=== PATIENT | female | born 1930 | race Caucasian/White ===

== ENCOUNTER 2017-06-25 21:57 | Inpatient (IN) | payer MEDICAID, MEDICARE ==
--- NOTE | 2017-06-25 22:44 | C.PDOC ---
History Of Present Illness 87 year old female who presents to the ER after falling and having a possible injury to the back of the head. As per family, patient missed a step on the staircase and fell. Patient is also complaining of a headache and pain to the right thigh area; uncertain about LOC, denies any weakness, numbness, nausea, or vomiting. - HPI Chief Complaint (Nursing): Trauma History Per: Patient History/Exam Limitations: no limitations Onset/Duration Of Symptoms: Days Location Of Injury: Posterior: Head (Possible) Recent travel outside of the [place]: No - Fall Fall:Prior To Injury: Other (Not known) Past Medical History Reviewed: Historical Data, Nursing Documentation, Vital Signs Vital Signs: Last Vital Signs Temp 98.2 F 06/25/17 22:07 Pulse 86 06/25/17 22:07 Resp 16 06/25/17 22:07 BP 145/61 06/25/17 22:07 Pulse Ox 98 06/26/17 01:46 - Medical History PMH: HTN, Osteoporosis Surgical History: No Surg Hx Family History: States: Unknown Family Hx - Social History Hx Tobacco Use: No Hx Alcohol Use: No Hx Substance Use: No - Immunization History Hx Tetanus Toxoid Vaccination: No Hx Influenza Vaccination: No Hx Pneumococcal Vaccination: No Review Of Systems Gastrointestinal: Negative for: Nausea, Vomiting Musculoskeletal: Positive for: Leg Pain Neurological: Positive for: Headache. Negative for: Weakness, Numbness, Other ( LOC) Physical Exam - Physical Exam Appears: Non-toxic, Other (Awake, alert, and conscious) Skin: Normal Color, Warm, Dry Head: Atraumatic, Normacephalic Eye(s): bilateral: Normal Inspection, PERRL, EOMI Oral Mucosa: Moist Chest: Symmetrical, No Tenderness Cardiovascular: Rhythm Regular, No Murmur Respiratory: Normal Breath Sounds, No Rales, No Rhonchi, No Wheezing Gastrointestinal/Abdominal: Soft, No Tenderness Neurological/Psych: Oriented x3, Normal Speech, Normal Cognition ED Course And Treatment - Laboratory Results Result Diagrams: 06/25/17 23:04 06/26/17 01:05 ECG: Interpreted By Me, Viewed By Me ECG Rhythm: Sinus Rhythm ECG Interpretation: Normal, No Acute Changes Interpretation Of ECG: NSR, normal tracings. Rate From EC O2 Sat by Pulse Oximetry: 98 Pulse Ox Interpretation: Normal - CT Scan/US CT Head Other Rad Studies (CT/US): Read By Radiologist, Radiology Report Reviewed CT/US Interpretation: EXAM: CT Head Without Intravenous Contrast. CLINICAL HISTORY: 87 years old, female; Pain; Headache. TECHNIQUE: Axial computed tomography images of the head/brain without intravenous contrast. This CT exam. was performed using one or more of the following dose reduction techniques: automated exposure. control, adjustment of the mA and/or kV according to patient size, and/or use of iterative. reconstruction technique. COMPARISON: No relevant prior studies available. Examination is limited by a significant amount of motion artifact. FINDINGS: Brain: No acute intracranial hemorrhage. Age-appropriate periventricular white matter disease. No. edema. Significant vascular calcifications are noted. Ventricles: Age-appropriate ventriculomegaly. Bones: No acute displaced fracture. Sinuses: Unremarkable as visualized. No acute sinusitis. Mastoid air cells: Unremarkable as visualized. No mastoid effusion. IMPRESSION:Limited examination secondary to motion artifact is without acute intracranial hemorrhage, or. suspicious mass effect. NIHSS Stroke Scale - Date/Time Evaluation Performed Date Performed: 06/26/17 Time Performed: 21:00 When Was NIHSS Performed: Baseline - How Severe is the [place]oke Level of Consciousness: 0=Alert LOC to Questions: 0=Both comments correct LOC to commands: 0=Obeys both correctly Visual: 0=No visual loss Facial: 0=Normal Motor Arm - Left: 0=No drift Motor Arm - Right: 0=No drift Motor Leg - Left: 0=No drift Motor Leg - Right: 0=No drift Limb Ataxia: 0=Absent Sensory: 0=Normal Best Language: 0=No aphasia Dysarthia: 0=Normal articulation Extinction & Inattention (Neglect): 0=Normal, no object Severity Of Stroke: 0= No Stroke Disposition Discussed With : Wilber Alarcon Doctor Will See Patient In The: Hospital Counseled Patient/Family Regarding: Diagnosis - Disposition Disposition: HOSPITALIZED Disposition Time: 01:45 Condition: STABLE Forms: [facility] ([place]) - POA Present On Arrival: None - Clinical Impression Clinical Impression: Abnormal blood electrolyte level, Hyponatremia, Head injury - Scribe Statement The provider has reviewed the documentation as recorded by the Scribe Emile Johns All medical record entries made by the Scribe were at my direction and personally dictated by me. I have reviewed the chart and agree that the record accurately reflects my personal performance of the history, physical exam, medical decision making, and the department course for this patient. I have also personally directed, reviewed, and agree with the discharge instructions and disposition.
[2017-06-25 23:08] LABS: BASO % 0.6 % (0.0-2.0); EOS % 0.7 % (0.0-4.0); HEMATOCRIT 32.7 % (34.0-47.0); LYMPH % 15.8 % (20.0-40.0); MEAN CELL VOLUME 87.1 fL (81.0-99.0); MEAN CORPUSCULAR HEMOGLOBIN 30.3 pg (27.0-31.0); MEAN CORPUSCULAR HGB CONC 34.8 g/dL (33.0-37.0); MEAN PLATELET VOLUME 6.6 fL (7.2-11.7); MONO # 0.8 K/uL (0.0-0.8); MONO % 12.2 % (0.0-10.0); RED CELL DISTRIBUTION WIDTH 13.9 % (11.5-14.5); WHITE BLOOD COUNT 6.3 K/uL (4.8-10.8)
[2017-06-25 23:15] LABS: CHLORIDE 82 mmol/L (98-107)
[2017-06-25 23:16] LABS: POTASSIUM 4.6 mmol/L (3.6-5.2)
[2017-06-25 23:18] LABS: ALB/GLOB RATIO 1.4 (1.0-2.1); ALKALINE PHOSPHATASE 69 U/L (38-126); ALT/SGPT 32 U/L (9-52); AST/SGOT 28 U/L (14-36); BILIRUBIN,TOTAL 0.7 mg/dL (0.2-1.3); BLOOD UREA NITROGEN 17 mg/dL (7-17); CARBON DIOXIDE 23 mmol/L (22-30); GFR AFRICAN-AMERICAN > 60; GLUCOSE,RANDOM 106 mg/dL (65-105); TOTAL PROTEIN 6.6 g/dL (6.3-8.3)
[2017-06-25 23:19] LABS: CALCIUM 8.3 mg/dl (8.6-10.4); SODIUM 118 mmol/L (132-148)
[2017-06-26] MEDS ORDERED: Sodium Chloride 0.9% 1,000 ML IV ONE (00:26)
[2017-06-26 01:19] LABS: BLOOD UREA NITROGEN 17 mg/dL (7-17); CALCIUM 7.8 mg/dl (8.6-10.4); CARBON DIOXIDE 25 mmol/L (22-30); CHLORIDE 84 mmol/L (98-107); GFR AFRICAN-AMERICAN > 60; GLUCOSE,RANDOM 90 mg/dL (65-105); POTASSIUM 4.4 mmol/L (3.6-5.2)
[2017-06-26 01:22] LABS: SODIUM 117 mmol/L (132-148)
--- NOTE | 2017-06-26 02:02 | CT ---
EXAM: CT Head Without Intravenous Contrast CLINICAL HISTORY: 87 years old, female; Pain; Headache TECHNIQUE: Axial computed tomography images of the head/brain without intravenous contrast. This CT exam was performed using one or more of the following dose reduction techniques: automated exposure control, adjustment of the mA and/or kV according to patient size, and/or use of iterative reconstruction technique. COMPARISON: No relevant prior studies available. Examination is limited by a significant amount of motion artifact. FINDINGS: Brain: No acute intracranial hemorrhage. Age-appropriate periventricular white matter disease. No edema. Significant vascular calcifications are noted. Ventricles: Age-appropriate ventriculomegaly. Bones: No acute displaced fracture. Sinuses: Unremarkable as visualized. No acute sinusitis. Mastoid air cells: Unremarkable as visualized. No mastoid effusion. IMPRESSION: Limited examination secondary to motion artifact is without acute intracranial hemorrhage, or suspicious mass effect.
[2017-06-26 06:49] LABS: CHLORIDE 90 mmol/L (98-107); POTASSIUM 4.3 mmol/L (3.6-5.2); SODIUM 121 mmol/L (132-148)
[2017-06-26 06:51] LABS: BILIRUBIN,TOTAL 0.7 mg/dL (0.2-1.3); GFR AFRICAN-AMERICAN > 60
[2017-06-26 06:52] LABS: ALB/GLOB RATIO 1.1 (1.0-2.1); ALKALINE PHOSPHATASE 48 U/L (38-126); ALT/SGPT 26 U/L (9-52); AST/SGOT 24 U/L (14-36); BLOOD UREA NITROGEN 12 mg/dL (7-17); CARBON DIOXIDE 21 mmol/L (22-30); GLUCOSE,RANDOM 82 mg/dL (65-105); TOTAL PROTEIN 5.8 g/dL (6.3-8.3)
[2017-06-26 06:53] LABS: CALCIUM 7.4 mg/dl (8.6-10.4)
[2017-06-26 10:05] LABS: URINE BILIRUBIN NEGATIVE (NEGATIVE); URINE BLOOD 1+ (NEGATIVE); URINE COLOR Straw (YELLOW); URINE GLUCOSE (UA) NORMAL (Normal); URINE KETONE NEGATIVE (NEGATIVE); URINE LEUKOCYTE ESTERASE 1+ Leu/uL (Negative); URINE PROTEIN NEGATIVE (NEGATIVE); URINE UROBILINOGEN NORMAL mg/dL (0.2-1.0); WBC URINE 3 /hpf (0-5)
[2017-06-26 10:08] LABS: RBC URINE 5 /hpf (0-3)
--- NOTE | 2017-06-26 10:20 | RAD ---
PROCEDURE: Right Femur Radiographs. HISTORY: injury / pain COMPARISON: None. TECHNIQUE: AP and Lateral Radiographs of the right femur. FINDINGS: FEMUR: There is diffuse bone demineralization. There is no acute fracture or bone destruction. SOFT TISSUES: Normal. OTHER FINDINGS: None. IMPRESSION: No acute fracture.
[2017-06-26] MEDS: Enoxaparin 40 mg Syringe SC SCH (10:38)
--- NOTE | 2017-06-26 22:52 | CP.PCM.HP ---
History of Present Illness - History of Present Illness History of Present Illness: CC: FALL HPI: 87 year old female with PMH of HTN, Irregular heart beat, on medications, complaint who presents to the ER after falling and having a possible injury to the back of the head. As per family, patient missed a step on the staircase and fell. Patient is also complaining of a headache and pain to the right thigh area; uncertain about LOC, denies any weakness, numbness, nausea, or vomiting.According to pt and her son there is no history of nubness, dizziness, abdominal pain Present on Admission - Present on Admission Any Indicators Present on Admission: Yes Review of Systems - Review of Systems Systems not reviewed;Unavailable: Acuity of Condition - Constitutional Constitutional: absent: As Per HPI, Anorexia, Chills, Daytime Sleepiness, Excessive Sweating, Fatigue, Fever, Frequent Falls, Headache, Increased Appetite , Lethargy, Malaise, Night Sweats, Snoring, Sleep Apnea, Weight Gain, Weight Loss, Weakness, Other - EENT Eyes: absent: As Per HPI, Blind Spots, Blurred Vision, Change in Vision, Decreased Night Vision, Diplopia, Discharge, Dry Eye, Exophthalmos, Floaters, Irritation, Itchy Eyes, Loss of Peripheral Vision, Pain, Photophobia, Requires Corrective Lenses, Sees Flashes, Spots in Vision, Tunnel Vision, Other Visual Disturbances, Loss of Vision, Other - Respiratory Respiratory: absent: As Per HPI, Cough, Dyspnea, Hemoptysis, Dyspnea on Exertion , Wheezing, Snoring, Stridor, Pain on Inspiration, Chest Congestion, Excessive Mucous Production, Change in Mucous Color, Pain with Coughing, Other - Gastrointestinal Gastrointestinal: absent: As Per HPI, Abdominal Pain, Belching, Bloating, Change in Bowel Habits, Change in Stool Character, Coffee Ground Emesis, Constipation, Cramping, Diarrhea, Dyspepsia, Dysphagia, Early Satiety, Excessive Flatus, Fecal Incontinence, Heartburn, Hematemesis, Hematochezia, Loose Stools, Melena, Nausea, Odynophagia, Temesmus, Vomiting, Other - Musculoskeletal Musculoskeletal: Abnormal Gait, Back Pain, Joint Swelling, Limited Range of Motion, Muscle Weakness, Radiating Pain into Limb - Psychiatric Psychiatric: absent: As Per HPI, Abnormal Sleep Pattern, Anhedonia, Anxiety, Auditory Hallucinations, Behavioral Changes, Change in Appetite, Change in Libido, Confusion, Depression, Difficulty Concentrating, Hallucinations, Homicidal Ideation, Hopelessness, Irritability, Memory Loss, Mood Swings, Panic Attacks, Paranoia, Suicidal Ideation, Visual Hallucinations, Tactile Hallucinations, Other - Endocrine Endocrine: absent: As Per HPI, Change in Body Appearance, Change in Libido, Cold Intolorance, Deepening of Voice, Excessive Sweating, Fatigue, Flushing, Heat Intolorance, Increase in Ring/Shoe/Hat Size, Palpitations, Polydipsia, Polyphagia, Polyuria, Other Past Patient History - Past Medical History & Family History Past Medical History?: Yes - Past Social History Smoking Status: Never Smoked - CARDIAC Hx Hypertension: Yes - MUSCULOSKELETAL/RHEUMATOLOGICAL Hx Falls: Yes Hx Osteoporosis: Yes - PSYCHIATRIC Hx Substance Use: No - SURGICAL HISTORY Hx Surgeries: No - ANESTHESIA Hx Anesthesia: No Hx Anesthesia Reactions: No Hx Malignant Hyperthermia: No Has any member of the family had a problem w/ anesthesia?: No Meds Allergies/Adverse Reactions: Allergies Allergy/AdvReac Type Severity Reaction Status Date / Time Penicillins Allergy Severe ITCHING Verified 06/25/17 22:11 Physical Exam - Constitutional Appears: No Acute Distress - Head Exam Head Exam: ATRAUMATIC, NORMAL INSPECTION, NORMOCEPHALIC - Eye Exam Eye Exam: EOMI, Normal appearance, PERRL Pupil Exam: NORMAL ACCOMODATION, PERRL - Respiratory Exam Respiratory Exam: Clear to Auscultation Bilateral, NORMAL BREATHING PATTERN - Cardiovascular Exam Cardiovascular Exam: REGULAR RHYTHM - GI/Abdominal Exam GI & Abdominal Exam: Normal Bowel Sounds, Soft. absent: Tenderness Additional comments: everted umblicus Results - Vital Signs Recent Vital Signs: Last Vital Signs Temp 98.4 F 06/26/17 22:00 Pulse 68 06/26/17 22:00 Resp 20 06/26/17 22:00 BP 151/73 H 06/26/17 22:00 Pulse Ox 94 L 06/26/17 22:00 - Labs Result Diagrams: 06/29/17 05:56 06/29/17 05:56 Assessment & Plan (1) HTN (hypertension) Status: Acute (2) Irregular heart beat Status: Acute (3) Abnormal blood electrolyte level Status: Acute (4) Head injury Status: Acute (5) Hyponatremia Status: Acute
[2017-06-27 06:26] LABS: CHLORIDE 89 mmol/L (98-107)
[2017-06-27 06:27] LABS: SODIUM 121 mmol/L (132-148)
[2017-06-27 06:29] LABS: GFR AFRICAN-AMERICAN > 60
[2017-06-27 06:30] LABS: BLOOD UREA NITROGEN 4 mg/dL (7-17); CALCIUM 7.5 mg/dl (8.6-10.4); CARBON DIOXIDE 24 mmol/L (22-30); GLUCOSE,RANDOM 86 mg/dL (65-105)
[2017-06-27] MEDS: Enoxaparin 40 mg Syringe SC SCH (09:50)
[2017-06-27] MEDS: Sodium Chloride 0.9% 1,000 ML IV SCH (15:54)
[2017-06-27 22:24] LABS: CHLORIDE 87 mmol/L (98-107); POTASSIUM 5.1 mmol/L (3.6-5.2); SODIUM 122 mmol/L (132-148)
[2017-06-27 22:26] LABS: GFR AFRICAN-AMERICAN > 60
[2017-06-27 22:27] LABS: BLOOD UREA NITROGEN 7 mg/dL (7-17); CALCIUM 8.1 mg/dl (8.6-10.4); CARBON DIOXIDE 26 mmol/L (22-30); GLUCOSE,RANDOM 101 mg/dL (65-105)
--- NOTE | 2017-06-27 22:36 | CP.PCM.PN ---
Subjective - Date & Time of Evaluation Date of Evaluation: 06/27/17 Time of Evaluation: 15:45 - Subjective Subjective: PT seen and evalauted, still c/o right hip pain and back pain, no symtoms of hyponatremia Objective - Vital Signs/Intake and Output Vital Signs (last 24 hours): Temp Pulse Resp BP Pulse Ox 97.7 F 83 18 143/61 97 06/27/17 20:00 06/27/17 20:00 06/27/17 20:00 06/27/17 20:00 06/27/17 20:00 Intake and Output: 06/27/17 06/28/17 18:59 06:59 Intake Total 1620 240 Output Total 1075 400 Balance 545 -160 - Medications Medications: Current Medications Acetaminophen (Tylenol 325mg Tab) 650 mg PO Q4 [facility] Last Admin: 06/27/17 16:12 Dose: Not Given Enoxaparin Sodium (Lovenox) 40 mg SC DAILY [facility] Last Admin: 06/27/17 09:50 Dose: 40 mg Sodium Chloride (Sodium Chloride 0.9%) 1,000 mls @ 80 mls/hr IV .[id number] [facility] Last Admin: 06/27/17 15:54 Dose: 80 mls/hr - Labs Labs: 06/27/17 22:12 - Constitutional Appears: No Acute Distress - Head Exam Head Exam: ATRAUMATIC, NORMAL INSPECTION, NORMOCEPHALIC - Eye Exam Eye Exam: EOMI, Normal appearance, PERRL Pupil Exam: NORMAL ACCOMODATION, PERRL - Respiratory Exam Respiratory Exam: Clear to Ausculation Bilateral, NORMAL BREATHING PATTERN - Cardiovascular Exam Cardiovascular Exam: Irregular Rhythm, +S1, +S2 - GI/Abdominal Exam GI & Abdominal Exam: Soft, Normal Bowel Sounds. absent: Tenderness Assessment and Plan (1) Abnormal blood electrolyte level Assessment & Plan: 1. htpertension 2. hyponatremia r/o siadh d/c ns start tolvaptan 30 mg po x 1 dose check cea, ca19-9, AFP, bmp in am, restrict fluids 800 ml/day Status: Acute (2) HTN (hypertension) Status: Acute (3) Head injury Status: Acute (4) Hyponatremia Status: Acute (5) Irregular heart beat Status: Acute
[2017-06-28] MEDS: Sodium Chloride 0.9% 1,000 ML IV SCH (04:33)
[2017-06-28 06:09] LABS: BASO % 0.6 % (0.0-2.0); EOS # 0.1 K/uL (0.0-0.7); EOS % 1.7 % (0.0-4.0); HEMATOCRIT 33.5 % (34.0-47.0); LYMPH % 20.1 % (20.0-40.0); MEAN CELL VOLUME 87.7 fL (81.0-99.0); MEAN CORPUSCULAR HEMOGLOBIN 30.3 pg (27.0-31.0); MEAN CORPUSCULAR HGB CONC 34.5 g/dL (33.0-37.0); MEAN PLATELET VOLUME 7.1 fL (7.2-11.7); MONO # 0.5 K/uL (0.0-0.8); MONO % 11.3 % (0.0-10.0); RED CELL DISTRIBUTION WIDTH 13.2 % (11.5-14.5); WHITE BLOOD COUNT 4.9 K/uL (4.8-10.8)
[2017-06-28 06:20] LABS: CHLORIDE 87 mmol/L (98-107); POTASSIUM 3.7 mmol/L (3.6-5.2); SODIUM 122 mmol/L (132-148)
[2017-06-28 06:23] LABS: CARBON DIOXIDE 25 mmol/L (22-30); GFR AFRICAN-AMERICAN > 60
[2017-06-28 06:24] LABS: BLOOD UREA NITROGEN 4 mg/dL (7-17); CALCIUM 7.7 mg/dl (8.6-10.4); GLUCOSE,RANDOM 91 mg/dL (65-105); URIC ACID 1.2 mg/dL (2.2-7.5)
[2017-06-28 06:59] LABS: THYROID STIMULATING HORMONE 1.32 mIU/L (0.46-4.68)
[2017-06-28] MEDS: Enoxaparin 40 mg Syringe SC SCH (10:03)
[2017-06-28] MEDS ORDERED: Magnesium Hydroxide Susp 30 ml UD PO PRN (10:41)
[2017-06-28] MEDS ORDERED: Tolvaptan 15 MG TAB PO ONE (13:00)
--- NOTE | 2017-06-28 13:37 | CP.PCM.CON ---
History of Present Illness - History of Present Illness History of Present Illness: pt seen and examined, follow up consult is dictated # [id number] 1. htpertension 2. hyponatremia r/o siadh d/c ns start tolvaptan 30 mg po x 1 dose check cea, ca19-9, AFP, bmp in am, restrict fluids 800 ml/day Past Patient History - Past Medical History & Family History Past Medical History?: Yes - Past Social History Smoking Status: Never Smoked - CARDIAC Hx Hypertension: Yes - MUSCULOSKELETAL/RHEUMATOLOGICAL Hx Falls: Yes Hx Osteoporosis: Yes - PSYCHIATRIC Hx Substance Use: No - SURGICAL HISTORY Hx Surgeries: No - ANESTHESIA Hx Anesthesia: No Hx Anesthesia Reactions: No Hx Malignant Hyperthermia: No Has any member of the family had a problem w/ anesthesia?: No Meds Allergies/Adverse Reactions: Allergies Allergy/AdvReac Type Severity Reaction Status Date / Time Penicillins Allergy Severe ITCHING Verified 06/25/17 22:11 - Medications Medications: Current Medications Acetaminophen (Tylenol 325mg Tab) 650 mg PO Q4 [facility] Last Admin: 06/28/17 12:00 Dose: Not Given Docusate Sodium (Colace) 100 mg PO BID [facility] Last Admin: 06/28/17 11:06 Dose: 100 mg Enoxaparin Sodium (Lovenox) 40 mg SC DAILY [facility] Last Admin: 06/28/17 10:03 Dose: 40 mg Magnesium Hydroxide (Milk Of Magnesia) 30 ml PO HS PRN PRN Reason: Constipation Results - Vital Signs Recent Vital Signs: Last Vital Signs Temp 98.1 F 06/28/17 12:00 Pulse 94 H 06/28/17 12:00 Resp 22 06/28/17 12:00 BP 139/53 L 06/28/17 12:00 Pulse Ox 96 06/28/17 12:00 - Labs Result Diagrams: 06/28/17 06:03 06/28/17 06:02 Labs: Laboratory Results - last 24 hr 06/27/17 06/27/17 06/27/17 16:41 16:41 22:12 WBC RBC Hgb Hct MCV MCH MCHC RDW Plt Count MPV Neut % (Auto) Lymph % (Auto) [place] % (Auto) Eos % (Auto) Baso % (Auto) Neut # Lymph # [place] # Eos # Baso # Sodium 122 L Potassium 5.1 Chloride 87 L Carbon Dioxide 26 Anion Gap 15 BUN 7 Creatinine 0.4 L Est GFR ( Amer) > 60 Est GFR (Non-Af Amer) > 60 Random Glucose 101 Serum Osmolality 253 L Uric Acid Calcium 8.1 L TSH 3rd Generation Cortisol AM Sample Urine Osmolality 271 L Ur Random Sodium 92 Ur Random Potassium 17.7 06/28/17 06/28/17 06:02 06:03 WBC 4.9 RBC 3.82 Hgb 11.5 Hct 33.5 L MCV 87.7 MCH 30.3 MCHC 34.5 RDW 13.2 Plt Count 257 MPV 7.1 L Neut % (Auto) 66.3 Lymph % (Auto) 20.1 [place] % (Auto) 11.3 H Eos % (Auto) 1.7 Baso % (Auto) 0.6 Neut # 3.2 Lymph # 1.0 [place] # 0.5 Eos # 0.1 Baso # 0.0 Sodium 122 L Potassium 3.7 Chloride 87 L Carbon Dioxide 25 Anion Gap 14 BUN 4 L Creatinine 0.3 L Est GFR ( Amer) > 60 Est GFR (Non-Af Amer) > 60 Random Glucose 91 Serum Osmolality Uric Acid 1.2 L Calcium 7.7 L TSH 3rd Generation 1.32 Cortisol AM Sample 10.0 Urine Osmolality Ur Random Sodium Ur Random Potassium
--- NOTE | 2017-06-28 23:42 | CP.PCM.PN ---
Subjective - Date & Time of Evaluation Date of Evaluation: 06/28/17 Time of Evaluation: 18:50 - Subjective Subjective: pt seen and examined, feeling better Objective - Vital Signs/Intake and Output Vital Signs (last 24 hours): Temp Pulse Resp BP Pulse Ox 98.2 F 91 H 16 148/55 L 97 06/28/17 16:00 06/28/17 16:00 06/28/17 16:00 06/28/17 16:00 06/28/17 16:00 Intake and Output: 06/28/17 06/29/17 18:59 06:59 Intake Total 2040 Output Total 2250 400 Balance -210 -400 - Medications Medications: Current Medications Acetaminophen (Tylenol 325mg Tab) 650 mg PO Q4 [facility] Last Admin: 06/28/17 22:47 Dose: Not Given Docusate Sodium (Colace) 100 mg PO BID [facility] Last Admin: 06/28/17 17:14 Dose: 100 mg Enoxaparin Sodium (Lovenox) 40 mg SC DAILY [facility] Last Admin: 06/28/17 10:03 Dose: 40 mg Magnesium Hydroxide (Milk Of Magnesia) 30 ml PO HS PRN PRN Reason: Constipation - Labs Labs: 06/28/17 06:03 06/28/17 06:02
--- NOTE | 2017-06-29 05:38 | CON ---
RENAL CONSULTATION LOCATION: The patient is located in ICU, bed A. REQUESTED BY: Dr. Wilber Alarcon. REASON FOR RENAL CONSULTATION: Hyponatremia for further evaluation. SUBJECTIVE: Mrs. Cardozo is an 87-year-old elderly female with a history of hypertension, hyperlipidemia who was now brought in by family after she had a near syncopal episode in the house. Denies any chest pain or palpitation. Denies any nausea, vomiting, diarrhea. The patient's family does complain that she was wobbly and dizzy before this whole incident happened. The patient still complains of feeling slightly weak and wobbly, when she tries to walk in the room. No swelling of the legs, no urinary symptoms, no rash. PAST MEDICAL HISTORY: Significant for hypertension and hyperlipidemia. PAST SURGICAL HISTORY: Denies. ALLERGIES: ALLERGY TO PENICILLIN. SOCIAL HISTORY: No smoking, no alcohol or drugs. PERSONAL HISTORY: . She has 9 children, 1 and 8 alive. CURRENT MEDICATIONS: Include Colace 100 mg p.o. b.i.d., Lovenox 40 mg subcutaneously daily, milk of magnesia and Tylenol. HOME MEDICATIONS: Lipitor 10 mg p.o. at bedtime. REVIEW OF SYSTEMS: Significant for syncopal episode, dizziness, and weakness. All other review of systems reviewed and negative. PHYSICAL EXAMINATION: VITAL SIGNS: As follows: Blood pressure 139/53, pulse 94, respirations 22, temperature 98.1, saturation 96%. Height 5 feet and weight is 112 pounds. GENERAL: Mrs. Cardozo is an 87-year-old elderly female, moderately built, moderately nourished, not in any acute distress. HEENT: Pupils normal, reactive to light and accommodation. Conjunctivae pink. Sclerae anicteric. Tongue is moist. Trachea is midline. LUNGS: Symmetric on both sides. Bilateral breath sounds present and clear on auscultation. CARDIOVASCULAR [place] at the fifth intercostal space, midclavicular line. S1 and S2 audible. No murmur or gallop. ABDOMEN: Normal in appearance, soft, tympanitic. No guarding. No hepatosplenomegaly. CENTRAL NERVOUS SYSTEM: The patient is alert, awake, and oriented x2 to 3. Sensory and motor systems grossly within normal limits. EXTREMITIES: No cyanosis. No clubbing. No edema. LABORATORY DATA: Include as follows: As of 06/28/2017, sodium 122, potassium 3.7, chloride 87, CO2 of 25, BUN 4, creatinine 0.3, glucose 91. Uric acid is 1.2 and serum calcium is 7.7. TSH is 1.32 and serum cortisol is 10. Other laboratory data as of 06/19/2017, serum sodium is 122, BUN and creatinine 7 and 0.4 and serum osmolality is 253. As of 06/27/2017, sodium is 122. Other reports of urinalysis; straw colored and clear, pH 6, specific gravity 1.009, protein negative, glucose negative, ketones negative, blood 1+, nitrites negative, bilirubin negative, urobilinogen normal, , leukocyte is 1+, wbc's 3, rbc's 5. Urine osmolality 271, urine sodium is 92 and urine potassium is 17.7. As of 06/25/2017, serum sodium is 118 and as of 06/26/2017, serum sodium is 117. Other reports, CT of the head as of 06/25/2017, impression is limited examination secondary to motion artifact without acute intracranial hemorrhage, suspicious mass effect and except the femur as of 06/25/2017, no acute fracture. There is diffuse bone demineralization and there is no acute fracture or bone destruction. IMPRESSION: In summary; Mrs. Cardozo is an 87-year-old elderly female with a history of hypertension, hyperlipidemia, osteoporosis, who was admitted after she had a fall in the house with dizziness and slight ecchymosis on the right thigh on the lateral aspect with low serum sodium of 117 and improved slightly with hydration to 121 and then no improvement with hydration and also found to have increased urine osmolality, low serum osmolality and increased urine sodium and low uric acid. Hyponatremia, picture consistent with euvolemic hypotonic hyponatremia, cannot rule out SIADH. PLAN: We will discontinue normal saline IV fluids and also we will add tolvaptan 30 mg p.o. x1 dose and repeat BMP in a.m. We will consider to add sodium chloride tablet 1 g p.o. t.i.d. and also high-protein diet. We will follow with you. Thank you for allowing me to participate in your patient's care. Juana Davenport MD [facility] # [id number] MTDGeoffrey
[2017-06-29 06:03] LABS: BASO % 0.5 % (0.0-2.0); EOS # 0.1 K/uL (0.0-0.7); EOS % 1.8 % (0.0-4.0); HEMATOCRIT 33.8 % (34.0-47.0); LYMPH # 0.7 K/uL (1.0-4.3); MEAN CELL VOLUME 88.4 fL (81.0-99.0); MEAN CORPUSCULAR HEMOGLOBIN 30.3 pg (27.0-31.0); MEAN CORPUSCULAR HGB CONC 34.2 g/dL (33.0-37.0); MEAN PLATELET VOLUME 6.9 fL (7.2-11.7); MONO # 0.6 K/uL (0.0-0.8); NRBC % 0.1 % (0.0-2.0); RED CELL DISTRIBUTION WIDTH 13.7 % (11.5-14.5); WHITE BLOOD COUNT 4.1 K/uL (4.8-10.8)
[2017-06-29 06:19] LABS: CHLORIDE 96 mmol/L (98-107)
[2017-06-29 06:20] LABS: POTASSIUM 3.8 mmol/L (3.6-5.2); SODIUM 132 mmol/L (132-148)
[2017-06-29 06:23] LABS: BLOOD UREA NITROGEN 8 mg/dL (7-17); CALCIUM 8.5 mg/dl (8.6-10.4); CARBON DIOXIDE 27 mmol/L (22-30); GFR AFRICAN-AMERICAN > 60; GLUCOSE,RANDOM 95 mg/dL (65-105)
[2017-06-29 08:06] VITALS: RESP 20
--- NOTE | 2017-06-29 09:10 | CP.PCM.PN ---
Subjective - Date & Time of Evaluation Date of Evaluation: 06/29/17 Time of Evaluation: 09:09 - Subjective Subjective: pt seen and examined, follow up consult is dictated #[id number] Objective - Vital Signs/Intake and Output Vital Signs (last 24 hours): Temp Pulse Resp BP Pulse Ox 98 F 83 20 133/54 L 98 06/29/17 08:00 06/29/17 08:00 06/29/17 08:00 06/29/17 08:00 06/29/17 08:00 Intake and Output: 06/29/17 06/29/17 06:59 18:59 Intake Total 150 Output Total 1100 Balance -950 - Medications Medications: Current Medications Acetaminophen (Tylenol 325mg Tab) 650 mg PO Q4 [facility] Last Admin: 06/29/17 08:05 Dose: Not Given Docusate Sodium (Colace) 100 mg PO BID [facility] Last Admin: 06/28/17 17:14 Dose: 100 mg Enoxaparin Sodium (Lovenox) 40 mg SC DAILY [facility] Last Admin: 06/28/17 10:03 Dose: 40 mg Magnesium Hydroxide (Milk Of Magnesia) 30 ml PO HS PRN PRN Reason: Constipation - Labs Labs: 06/29/17 05:56 06/29/17 05:56
[2017-06-29] MEDS: Enoxaparin 40 mg Syringe SC SCH (09:20)
[2017-06-29 10:12] LABS: CHLORIDE URINE 104 mmol/L (32-290)
--- NOTE | 2017-06-29 12:18 | CON ---
LOCATION: The patient is located in ICU, bed A. REQUESTED BY: Wilber Alarcon MD REASON FOR RENAL CONSULTATION: Follow up for hyponatremia. SUBJECTIVE: Mrs. Cardozo is an 87-year-old elderly female with the past medical history significant for hypertension and hyperlipidemia, was admitted after she had fall in the house and felt dizzy prior to the fall. The patient is out of bed to chair now. Denies any headache or dizziness. Denies any chest pain or palpitation. No fever. No cough. No abdominal pain. No nausea, vomiting, or diarrhea. PHYSICAL EXAMINATION VITAL SIGNS: This morning as follows: Blood pressure of 133/54, pulse of 83, respirations of 20, temperature of 98, and saturation of 98%. Height is 5 feet and weight is 112 pounds. GENERAL: Mrs. Cardozo is an 87-year-old elderly female, moderately built, moderately nourished, not in any acute distress. HEENT: Pupils are normally reactive to light and accommodation. Conjunctivae are pink. Sclerae are anicteric. Tongue is moist. Trachea is midline. LUNGS: Symmetric on both sides. Bilateral breath sounds present and clear on auscultation. CARDIOVASCULAR SYSTEM: [place] at the fifth intercostal space, midclavicular line. S1 and S2 audible. No murmur or gallop. ABDOMEN: Normal in appearance, soft, and tympanitic. No guarding. No hepatosplenomegaly. CENTRAL NERVOUS SYSTEM: The patient is alert, awake, and oriented x3. Nonfocal on examination. Cranial nerves II through XII grossly intact. Sensory and motor testing is within normal limits. EXTREMITIES: No cyanosis. No clubbing. No edema. LABORATORY DATA: This morning as follows: WBC of 4.1, hemoglobin of 11.6, hematocrit of 33.8, and platelets of 285. Sodium of 132, potassium of 3.8, chloride of 96, CO2 of 27, BUN is 8, and creatinine is 0.4. Glucose is 95 and calcium is 8.5. TSH is 1.32 and serum cortisol s 10. As of 06/27/2017, urine osmolality of 271, urine sodium of 92, serum osmolality of 253, and uric acid of 1.2. CURRENT MEDICATIONS: Include and as follows: Colace 100 mg p.o. b.i.d., Lovenox 40 mg subcutaneously daily, milk of magnesia and Tylenol 650 mg q. 4 hours. p.r.n. ASSESSMENT AND PLAN: In Summary: Mrs. Cardozo is an 87-year-old elderly female with hypertension and hyperlipidemia, status post fall, and found to have hyponatremia. 1. 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 2. Check CEA, CA 19-9, and alpha fetoprotein. 3. Chest x-ray to rule out any underlying malignancy and restricted fluids to 800 mL per day and also add sodium chloride tablet 1 gram p.o. b.i.d. and follow up basic metabolic profile in a.m. and I will follow with that. Thank you for allowing me to participate in your patient's care. Juana Davenport MD MTDD
[2017-06-29 16:30] VITALS: BP 152/50; PULSE 89; TEMP 98.4; O2SAT 97
--- NOTE | 2017-06-30 08:14 | CP.PCM.DIS ---
Provider - Provider Date of Admission: 06/26/17 18:28 Attending physician: Wilber Alarcon MD Time Spent in preparation of Discharge (in minutes): 45 Hospital Course - Lab Results Lab Results: Micro Results 06/26/17 Unknown Naris MRSA Culture (Admit) - Final MRSA NOT DETECTED Most Recent Lab Values WBC 4.1 K/uL (4.8-10.8) L 06/29/17 05:56 RBC 3.82 Mil/uL (3.80-5.20) 06/29/17 05:56 Hgb 11.6 g/dL (11.0-16.0) 06/29/17 05:56 Hct 33.8 % (34.0-47.0) L 06/29/17 05:56 MCV 88.4 fL (81.0-99.0) 06/29/17 05:56 MCH 30.3 pg (27.0-31.0) 06/29/17 05:56 MCHC 34.2 g/dL (33.0-37.0) 06/29/17 05:56 RDW 13.7 % (11.5-14.5) 06/29/17 05:56 Plt Count 285 K/uL (130-400) 06/29/17 05:56 MPV 6.9 fL (7.2-11.7) L 06/29/17 05:56 Neut % (Auto) 65.7 % (50.0-75.0) 06/29/17 05:56 Lymph % (Auto) 17.0 % (20.0-40.0) L 06/29/17 05:56 [place] % (Auto) 15.0 % (0.0-10.0) H 06/29/17 05:56 Eos % (Auto) 1.8 % (0.0-4.0) 06/29/17 05:56 Baso % (Auto) 0.5 % (0.0-2.0) 06/29/17 05:56 Neut # 2.7 K/uL (1.8-7.0) 06/29/17 05:56 Lymph # 0.7 K/uL (1.0-4.3) L 06/29/17 05:56 [place] # 0.6 K/uL (0.0-0.8) 06/29/17 05:56 Eos # 0.1 K/uL (0.0-0.7) 06/29/17 05:56 Baso # 0.0 K/uL (0.0-0.2) 06/29/17 05:56 Sodium 132 mmol/L (132-148) 06/29/17 05:56 Potassium 3.8 mmol/L (3.6-5.2) 06/29/17 05:56 Chloride 96 mmol/L (98-107) L 06/29/17 05:56 Carbon Dioxide 27 mmol/L (22-30) 06/29/17 05:56 Anion Gap 13 (10-20) 06/29/17 05:56 BUN 8 mg/dL (7-17) 06/29/17 05:56 Creatinine 0.4 MG/DL (0.7-1.2) L 06/29/17 05:56 Est GFR ( Amer) > 60 06/29/17 05:56 Est GFR (Non-Af Amer) > 60 06/29/17 05:56 Random Glucose 95 mg/dL (65-105) 06/29/17 05:56 Serum Osmolality 253 mosm/kg (272-300) L 06/27/17 16:41 Uric Acid 1.2 mg/dL (2.2-7.5) L 06/28/17 06:02 Calcium 8.5 mg/dl (8.6-10.4) L 06/29/17 05:56 Total Bilirubin 0.7 mg/dL (0.2-1.3) 06/26/17 06:34 AST 24 U/L (14-36) 06/26/17 06:34 ALT 26 U/L (9-52) 06/26/17 06:34 Alkaline Phosphatase 48 U/L (38-126) 06/26/17 06:34 Total Creatine Kinase 35 U/L (30-135) 06/27/17 06:12 Total Protein 5.8 g/dL (6.3-8.3) L 06/26/17 06:34 Albumin 3.1 g/dL (3.5-5.0) L 06/26/17 06:34 Globulin 2.7 gm/dL (2.2-3.9) 06/26/17 06:34 Albumin/Globulin Ratio 1.1 (1.0-2.1) 06/26/17 06:34 TSH 3rd Generation 1.32 mIU/L (0.46-4.68) 06/28/17 06:02 Cortisol AM Sample 10.0 ug/dL (4.46-22.7) 06/28/17 06:02 Urine Color Straw (YELLOW) 06/26/17 09:58 Urine Clarity Clear (Clear) 06/26/17 09:58 Urine pH 6.0 (5.0-8.0) 06/26/17 09:58 Ur Specific [place] 1.009 (1.003-1.030) 06/26/17 09:58 Urine Protein Negative mg/dL (NEGATIVE) 06/26/17 09:58 Urine Glucose (UA) Normal mg/dL (Normal) 06/26/17 09:58 Urine Ketones Negative mg/dL (NEGATIVE) 06/26/17 09:58 Urine Blood 1+ (NEGATIVE) H 06/26/17 09:58 Urine Nitrate Negative (NEGATIVE) 06/26/17 09:58 Urine Bilirubin Negative (NEGATIVE) 06/26/17 09:58 Urine Urobilinogen Normal mg/dL (0.2-1.0) 06/26/17 09:58 Ur Leukocyte Esterase 1+ Gayathri/uL (Negative) H 06/26/17 09:58 Urine WBC (Auto) 3 /hpf (0-5) 06/26/17 09:58 Urine RBC (Auto) 5 /hpf (0-3) H 06/26/17 09:58 Ur Squamous Epith Cells 2 /hpf (0-5) 06/26/17 09:58 Urine Osmolality 271 mosm/kg (300-1000) L 06/27/17 16:41 Ur Random Sodium 92 mmol/L 06/27/17 16:41 Ur Random Potassium 17.7 mmol/L 06/27/17 16:41 Urine Chloride 104 mmol/L (32-290) 06/27/17 16:41 Discharge Plan - Follow Up Plan Condition: STABLE Disposition: HOME/ ROUTINE Instructions: Heart Healthy Diet (DC), Fall Prevention (DC) Additional Instructions: NO NEW PRESCRIPTION FOLLOW UP IN THE [facility] OF [facility] IN 1 WEEK; PLEASE CALL TO MAKE AN APPOINTMENT AT [phone]
--- NOTE | 2017-07-05 08:55 | CARD ---
APPROVED REPORT EKG Measurement Heart [id number] <Conclusion> Normal sinus rhythm Normal ECG
== END 2017-06-29 18:35 | disposition home or self-care (01) | DRG 914 ==
LOC: C.ER 21:57 → C.9E 06-26 01:48 → C.9I 06-26 03:53 → OBSVTOIN 06-26 18:28
PROVIDERS: ADMIT Internal Medicine; ATTEND Internal Medicine
DX: S09.90XA Unspecified injury of head, initial encounter (principal); E22.2 Syndrome of inappropriate secretion of antidiuretic hormone; S70.01XA Contusion of right hip, initial encounter; E78.5 Hyperlipidemia, unspecified; I10 Essential (primary) hypertension; I49.9 Cardiac arrhythmia, unspecified; M81.0 Age-related osteoporosis without current pathological fracture; K59.00 Constipation, unspecified; W10.8XXA Fall (on) (from) other stairs and steps, initial encounter; Y92.008 Other place in unspecified non-institutional (private) residence as the place of occurrence of the external cause; Z88.0 Allergy status to penicillin